=== PATIENT | male | born 1980 | race Caucasian/White ===

== ENCOUNTER 2018-06-19 05:57 | Day surgery (SDC) | payer BC ==
--- NOTE | 2018-06-18 10:34 | PCM.PREANE ---
Preanesthetic Assessment - Anesthesia/Transfusion/Family Hx Anesthesia History: Prior Anesthesia Without Reaction (closed reduction of knee. ) Family History of Anesthesia Reaction: No Transfusion History: No Prior Transfusion(s) Intubation History: Unknown - Review of Systems General: No Symptoms Pulmonary: No Symptoms (smoker: 16pk/yr smoking history/smokes 1 pack/day) Cardiovascular: No Symptoms (history of HTN without medications ), Palpitations Gastrointestinal: No Symptoms (GERD) Neurological: No Symptoms (chronic lumbar back pain, thoracic back pain) Other: Reports: None, Liver Problems (elevated liver enzymes noted: ETOH: 1-2 drinks per week.), Sinus Problem (seasonal allergies/chronic rhinitis), Neck Pain - Physical Assessment NPO Status Date: 06/18/18 NPO Status Time: 21:30 Pulse: 96 O2 Sat by Pulse Oximetry: 99 Respiratory Rate: 16 Blood Pressure: 145/105 Temperature: 36.5 C Height: 1.91 m Weight: 71.668 kg ASA Class: 2 Mental Status: Alert & Oriented x3 Airway Class: Mallampati = 2 Dentition: Reports: Normal Dentition, Caries Thyro-Mental Finger Breadths: 3 Mouth Opening Finger Breadths: 3 ROM/Head Extension: Full Lungs: Clear to Auscultation, Normal Respiratory Effort Cardiovascular: Regular Rate, Regular Rhythm, No Murmurs - Lab Values: Laboratory Last Values MRSA (PCR) Negative 06/03/18 16:36 All labs reviewed and noted and within acceptable ranges to proceed with scheduled procedure. - Imaging/EKG Impressions: EKG: SR rate= 78 CXR: negative - Allergies Allergies/Adverse Reactions: Allergies Allergy/AdvReac Type Severity Reaction Status Date / Time egg Allergy Mild Swelling Verified 06/19/18 06:57 - Anesthesia Plan Pre-Op Medication Ordered: Other (tylenol, lyrica, oxycodon ER given P.0. @0633) - Acknowledgements Anesthesia Type Planned: General Anesthesia Pt an Appropriate Candidate for the Planned Anesthesia: Yes Alternatives and Risks of Anesthesia Discussed w Pt/Guardian: Yes Pt/Guardian Understands and Agrees with Anesthesia Plan: Yes PreAnesthesia Questionnaire - HOME MEDS Home Medications: Home Meds Cholecalciferol (Vitamin D3) [Vitamin D] 5,000 unit PO DAILY 06/18/18 [History] Acetaminophen/oxyCODONE [Percocet 325-5 MG] 1 - 2 each PO Q6H PRN #40 tab [Rx] Aspirin 325 mg PO BID #84 tab 06/19/18 [Rx] - CURRENT (IN HOUSE) MEDS Current Meds: Current Medications Acetaminophen (Tylenol) 975 mg PO ONETIME RAJIV Stop: 06/19/18 14:00 Lactated Ringer's (Ringers, Lactated) 1,000 mls @ 125 mls/hr IV ASDIRECTED RAJIV Stop: 06/19/18 23:00 Lidocaine/Sodium Bicarbonate (Buffered Lidocaine 1% In Ns 8.4%) 0.25 ml IDERM ONETIME PRN PRN Reason: Prior to IV Start Stop: 06/19/18 18:00 Oxycodone HCl (Oxycontin) 10 mg PO ONETIME RAJIV Stop: 06/19/18 14:00 Pregabalin (Lyrica) 50 mg PO ONETIME RAJIV Stop: 06/19/18 14:00 Sodium Chloride (Saline Flush) 10 ml FLUSH ASDIRECTED PRN PRN Reason: Keep Vein Open Stop: 06/19/18 18:00
[~2018-06-19 05:57] MED LIST: Lactated Ringers 1,000 ML IV SCH; Lidocaine 1%/Sod Bicarbonate in NS 8.4% 1 ML Syringe IDERM PRN; Sodium Chloride 0.9% 10 ML Syringe FLUSH PRN
[2018-06-19] MEDS ORDERED: Acetaminophen 325 MG Tab PO SCH (06:00)
[2018-06-19] MEDS ORDERED: Pregabalin 25 MG Cap PO SCH (06:00)
[2018-06-19] MEDS ORDERED: oxyCODONE ER 10 MG TAB.ER PO SCH (06:00)
[2018-06-19] MEDS ORDERED: Ketorolac 30 MG/ML SDV ONE (06:30)
[2018-06-19] MEDS ORDERED: ceFAZolin 1 GM Vial ONE (06:30)
[2018-06-19] MEDS ORDERED: Ondansetron 4 MG/2 ML SDV ONE (06:30)
[2018-06-19] MEDS ORDERED: Dexamethasone 4 MG/ML SDV ONE (06:30)
[2018-06-19] MEDS ORDERED: Lidocaine 1% 4 ML ONE (06:30)
[2018-06-19] MEDS ORDERED: Sodium Chloride 0.9% 1,000 ML ONE (06:30)
[2018-06-19] MEDS ORDERED: HYDROmorphone 0.5 MG/0.5 ML Syringe ONE ×3 (06:31→09:09)
[2018-06-19] MEDS ORDERED: Propofol 200 MG/20 ML SDV ONE (06:31)
[2018-06-19] MEDS ORDERED: Midazolam 1 MG/ML 2 ML SDV ONE (06:31)
[2018-06-19] MEDS ORDERED: fentaNYL 250 MCG/5 ML SDV ONE (06:32)
[2018-06-19] MEDS ORDERED: EPINEPHrine 1 MG/ML 30 ML MDV ONE (06:57)
[2018-06-19] MEDS ORDERED: EPINEPHrine 1 MG/ML 30 ML MDV SCH (07:00)
[2018-06-19] MEDS ORDERED: Labetalol 100 MG/20 ML MDV ONE (07:40)
[2018-06-19] MEDS ORDERED: Phenylephrine/Normal Saline 100 MCG/ML 10 ML Syringe ONE (07:56)
[2018-06-19] MEDS ORDERED: Neostigmine Methylsulfate 1 MG/ML 5 ML Syringe ONE (08:05)
[2018-06-19] MEDS: Bupivacaine 0.25% 30 ML SDV ONE ×2 (08:54→10:02)
[2018-06-19] MEDS ORDERED: Phenylephrine 1 MG in Sodium Chloride 0.9% 10 ML IV SCH (09:15)
[2018-06-19] MEDS ORDERED: fentaNYL 100 MCG/2 ML SDV IVPUSH PRN (09:15)
[2018-06-19] MEDS ORDERED: diphenhydrAMINE 50 MG/ML SDV IVPUSH PRN (09:15)
[2018-06-19] MEDS ORDERED: Midazolam 1 MG/ML 2 ML SDV IVPUSH PRN (09:15)
[2018-06-19] MEDS ORDERED: Ondansetron 4 MG/2 ML SDV IVPUSH PRN (09:15)
[2018-06-19] MEDS ORDERED: HYDROmorphone 0.5 MG/0.5 ML Syringe IVPUSH PRN (09:15)
--- NOTE | 2018-06-19 10:31 | PCM.POSTAN ---
POST ANESTHESIA ASSESSMENT - MENTAL STATUS Mental Status: Alert - VITAL SIGNS Pulse Rate: 108 SaO2: 96 (2 LPM nasal cannula) Resp Rate: 12 Blood Pressure: 118/96 Temperature: 36.9 C - RESPIRATORY Respiratory Status: Respiratory Rate WNL, Airway Patent, O2 Saturation Stable, Supplemental Oxygen - CARDIOVASCULAR CV Status: Pulse Rate WNL, Blood Pressure Stable - GASTROINTESTINAL GI Status: No Symptoms - POST OP HYDRATION Hydration Status: Adequate & Stable
--- NOTE | 2018-06-19 11:36 | PCM48HPAN ---
Post Anesthesia Note - EVALUATION WITHIN 48HRS OF ANESTHETIC Vital Signs in Normal Range: Yes Patient Participated in Evaluation: Yes Respiratory Function Stable: Yes Airway Patent: Yes Cardiovascular Function Stable: Yes Hydration Status Stable: Yes Pain Control Satisfactory: Yes Nausea and Vomiting Control Satisfactory: Yes Mental Status Recovered: Yes
--- NOTE | 2018-06-19 11:45 | CR ---
Right hip: Multiple fluoroscopic spot views were obtained of the right hip during arthroscopic procedure utilizing C-arm. Prominent superior acetabular lip is again noted. Laparoscopic tools are seen. Fluoroscopy time given as 86.3 seconds. Impression: 1. Operative study as noted above. Diagnostic code #2
--- NOTE | 2018-06-30 09:35 | PCM.OPNOTE ---
- General Post-Op/Procedure Note Date of Surgery/Procedure: 06/19/18 Operative Procedure(s): right hip video arthroscopy with acetabuloplasty and femoroplasty with labral repair Pre Op Diagnosis: right hip femoroacetabular impingement Post-Op Diagnosis: Same Anesthesia Technique: General ET Tube, Local Primary Surgeon: Krishan Sweet Anesthesia Provider: Chrissy Bruce EBL in mLs: 5 Complications: None Condition: Good
--- NOTE | 2018-06-30 10:18 | OR ---
DATE OF OPERATION: 06/19/2018 SURGEON: Krishan Sweet MD OPERATION PERFORMED: Right hip video arthroscopy with acetabuloplasty and femoroplasty with labral repair. PREOPERATIVE DIAGNOSIS: Right hip facet femoral and acetabular impingement. POSTOPERATIVE DIAGNOSIS: Right hip facet femoral and acetabular impingement. ANESTHESIA: General endotracheal intubation with local. FIELD NURSE: None. ANESTHESIA PROVIDER: Chrissy Bruce CRNA. ESTIMATED BLOOD LOSS: 5 mL. COMPLICATIONS: None. CONDITION: Stable DESCRIPTION OF PROCEDURE: The patient was identified in the preop holding area. Proper site was marked and identified by the surgeon. The patient was taken back to the operating theater, where after adequate anesthesia, the patient's left lower extremity was placed in a traction boot, but no traction was applied and placed in a dependent position. Right lower extremity was placed in a traction boot. The PEG was placed and it was well padded. At this time, the right hip was then sterilely prepped and draped in the usual sterile fashion. OR time-out was performed. The patient received 2 g of IV Ancef in the right hip and had gross traction and then fine traction applied until the hip joint was opened. At this time, with the use of a spinal needle, a lateral portal was then created, a guidewire was then placed, an incision was made, a dilator that was then placed, and then the scope viewing portal was placed. At this time, it was found to be in the proper position, and with the use of a spinal needle, an anterolateral accessory portal was then placed under direct visualization and was found to be in adequate position. At this time, the same steps were repeated and another trocar was placed. At this time, saline was then turned on. Direct visualization of the femoral head showed no signs of chondromalacia. There was significant top bubbling of the cartilaginous surface of the acetabulum near where you could see significant overhang just anterior and anterolateral on the acetabulum. At this time, a traction stitch was applied superiorly on the acetabulum and a working portal was placed in the anterolateral portal. Debridement of the synovium was done and capsule was taken over the top of the acetabulum and the labrum and the delaminated portion was elevated back until the overhang of the acetabulum could be identified. Once this was identified on both C-arm fluoroscopy and direct visualization, a mindy bur was opened and I was able to resect roughly 6-7 mm of acetabular overhang over the anterior and anterolateral portion. It was found to have good resection both direct visualization as well as C-arm fluoroscopy and these images were saved. At this time, the labrum as well as the labral-chondral junction had to be repaired back. Starting medially, I was able to place 3 anchors to get good watertight repair of the previous labral tear. Once this was found to be securely fastened, using 1 knotless anchor and two 2.7 mm [place] standard labral anchors, it was found to have a good watertight repair with presybeterian of the chondrolabral junction. At this time, traction was taken off and with the use of a [employer] sword, neck cut of the capsule was completed down the neck and traction stitch was placed both medially and laterally for direct visualization of the CAM lesion. There was noted to be a mild CAM lesion on both C-arm fluoroscopy as well as direct visualization. At this time, with the use of a mindy bur, I was able to do a good chondroplasty of the anterior and anterolateral femoral neck taking it back to a good resection edge of roughly 5 to 6 mm where the previous cartilage damage was noted. At this time, the C-arm fluoroscopy films showed good takedown of the previous CAM lesion. At this time, a capsular repair was not performed as the patient did have a significantly tight capsule and the T-capsulotomy with significant swelling of the water at this point would not have been able to be repaired. At this time, excess saline was drained. 3-0 nylon simple suture was used for closure of the skin. 0.25% Marcaine was injected around the ASIS as well as the incisional sites and the patient had a sterile soft dressing applied and then was sent to PACU in stable condition. JONO /[id number]
== END 2018-06-19 12:53 | disposition home or self-care (01) ==
LOC: JD.SDS 05:57
PROVIDERS: ATTEND Orthopaedic Surgery
DX: M25.851 Other specified joint disorders, right hip (principal); M25.551 Pain in right hip; I10 Essential (primary) hypertension; F17.210 Nicotine dependence, cigarettes, uncomplicated; M25.852 Other specified joint disorders, left hip; M25.552 Pain in left hip; Z79.82 Long term (current) use of aspirin; Z91.012 Allergy to eggs
CPT/HCPCS: 01202; 76000; 76000-26; 87641; A9270-GY; C1713; C1776; J0171; J0690; J1100; J1170; J1885; J2001; J2250; J2370; J2405; J2704; J2710; J3010; J3490; J7040; J7120

== ENCOUNTER 2021-11-23 08:18 | Day surgery (SDC) | payer OTHER ==
[~2021-11-23 08:18] MED LIST changes: +Sodium Chloride 0.9% 10 ML Syringe FLUSH SCH
[2021-11-23] MEDS ORDERED: fentaNYL 100 MCG/2 ML SDV ONE (08:41)
[2021-11-23] MEDS ORDERED: Propofol 200 MG/20 ML SDV ONE ×4 (08:41→09:33)
[2021-11-23] MEDS ORDERED: Lidocaine 1% 6 ML ONE (08:42)
[2021-11-23] MEDS ORDERED: Midazolam 1 MG/ML 2 ML SDV ONE ×2 (08:42→09:11)
[2021-11-23] MEDS ORDERED: Ondansetron 4 MG/2 ML SDV ONE (08:55)
[2021-11-23] MEDS ORDERED: Albuterol 0.083% 2.5 MG/3 ML Neb Soln NEB ONE (10:09)
== END 2021-11-23 11:45 | disposition home or self-care (01) ==
LOC: JD.SDS 08:18
PROVIDERS: ATTEND Surgery
DX: D12.3 Benign neoplasm of transverse colon (principal); K57.31 Diverticulosis of large intestine without perforation or abscess with bleeding; K52.9 Noninfective gastroenteritis and colitis, unspecified; K29.50 Unspecified chronic gastritis without bleeding; K29.80 Duodenitis without bleeding; K21.9 Gastro-esophageal reflux disease without esophagitis; K64.8 Other hemorrhoids; F41.9 Anxiety disorder, unspecified; F32.A Depression, unspecified; I10 Essential (primary) hypertension; Z88.5 Allergy status to narcotic agent; E55.9 Vitamin D deficiency, unspecified; Z91.012 Allergy to eggs; Z79.899 Other long term (current) drug therapy
CPT/HCPCS: 43239; 45380; 45385; J2250; J2405; J2704; J3010; J7120; 00813